=== PATIENT | male | born 1990 | race Two or more races ===

== ENCOUNTER 2025-05-15 00:48 | Emergency (ER) | payer OTHER ==
[~2025-05-15] VITALS: Ht 188 cm; Wt 81.6 kg
[2025-05-15] MEDS ORDERED: GUAIFENESIN/D-METHORPHAN HB 5 ML UDC ONE (02:06)
[2025-05-15] MEDS: GUAIFENESIN/D-METHORPHAN HB 5 ML UDC PO ONE (02:07)
[2025-05-15] MEDS ORDERED: IBUPROFEN 400 MG TABLET ONE (02:07)
[2025-05-15] MEDS: IBUPROFEN 400 MG TABLET PO ONE (02:16)
[2025-05-15] MEDS: FLUTICASONE PROPIONATE 16 GM BOTTLE NS STA (02:21)
[2025-05-15] MEDS ORDERED: [UNRECOGNIZED DRUG - CODE] PO (03:29)
[2025-05-15] MEDS ORDERED: IBUP-1957 PO (03:29)
[2025-05-15] MEDS ORDERED: FLUT16SP16 BNOSTRILS (03:29)
[2025-05-15] MEDS ORDERED: ACET-2030 PO (03:29)
[2025-05-15 05:45] VITALS: BP 122/78; TEMP 99.3; O2SAT 99
== END 2025-05-15 05:48 | disposition home or self-care (01) ==
LOC: ER 01:22
DX: B34.9 Viral infection, unspecified (principal); R05.9 Cough, unspecified; R07.89 Other chest pain; R09.81 Nasal congestion; F17.200 Nicotine dependence, unspecified, uncomplicated; Z20.822 Contact with and (suspected) exposure to COVID-19; Z79.1 Long term (current) use of non-steroidal anti-inflammatories (NSAID)